=== PATIENT | male | born 1950 | race Caucasian/White ===

== ENCOUNTER 2025-04-09 11:44 | Inpatient (IN) | payer OTHER, MEDICARE ==
[~2025-04-09] VITALS: Ht 177.8 cm; Wt 59.9 kg
[2025-04-09] MEDS ORDERED: EPINEPhrine HCl 1 MG/ML IV IV ONE (11:52)
[2025-04-09] MEDS ORDERED: Phenylephrine HCl 100 MCG/ML-NS 10MLSYR (1MG/10ML) IV ONE (11:52)
[2025-04-09] MEDS ORDERED: Midazolam HCl 1MG / ML 2ML Vial IV ONE (11:52)
[2025-04-09] MEDS ORDERED: Naloxone HCl 0.4MG / ML 1ML Vial IV ONE (11:52)
[2025-04-09 12:54] LABS: BASOPHILS ABSOLUTE AUTO 0.03 K/mm3 (0.00-0.23); BASOPHILS PERCENT AUTO 0 % (0-2); EOSINOPHILS ABSOLUTE AUTO 0.05 K/mm3 (0.00-0.68); EOSINOPHILS PERCENT AUTO 0 % (0-6); Hematocrit 48.0 % (37.0-53.0); Hemoglobin 15.5 g/dL (13.5-17.5); IMMATURE GRAN ABSOLUTE AUTO 0.07 K/mm3 (0.00-0.10); IMMATURE GRAN PERCENT AUTO 1 % (0-1); LYMPHOCYTES ABSOLUTE AUTO 1.61 K/mm3 (0.84-5.20); LYMPHOCYTES PERCENT AUTO 11 % (21-46); MONOCYTES ABSOLUTE AUTO 0.91 K/mm3 (0.16-1.47); MONOCYTES PERCENT AUTO 6 % (4-13); Mean Corpuscular HGB Conc 32.3 g/dL (31.5-36.5); Mean Corpuscular Volume 87 fL (80-100); NEUTROPHILS ABSOLUTE AUTO 11.60 K/mm3 (1.96-9.15); NEUTROPHILS PERCENT AUTO 81 % (41-73); NRBC ABSOLUTE 0.00 K/mm3 (0.00-0.02); NRBC Auto 0.0 /100 WBC (0.0-0.2); Platelet Count 474 K/mm3 (150-400); RDW Coefficient Variation 16.2 % (11.7-14.2); RDW Standard Deviation 51.9 fL (35.1-46.3)
[2025-04-09 13:35] LABS: Alanine Aminotransfer (ALT/SGP 26.0 U/L (12-78); Albumin, Blood 3.0 g/dL (3.4-5.0); Albumin/Globulin Ratio 0.6 (0.8-1.8); Anion Gap 11.0 mmol/L (3-11); Aspartate Aminotrans (AST/SGOT 25.0 U/L (12-37); Bilirubin, Total 0.4 mg/dL (0.1-1.0); Blood Urea Nitrogen 31.0 mg/dL (8-24); CO2, Blood 25.0 mmol/L (21-32); Calcium, Blood 10.8 mg/dL (8.5-10.1); Chloride, Blood 108.0 mmol/L (98-108); Creatinine, Blood 0.93 mg/dL (0.60-1.20); Globulin, Blood 4.8 g/dL (2.2-4.0); Glucose, Blood 89.0 mg/dL (70-99); Magnesium, Blood 2.2 mg/dL (1.6-2.4); Potassium, Blood 4.1 mmol/L (3.5-5.5); Sodium, Blood 140.0 mmol/L (136-145); Total Protein, Blood 7.8 g/dL (6.4-8.2)
[2025-04-09] MEDS ORDERED: Furosemide 10 MG / ML 2ML Vial IV ONE (13:55)
[2025-04-09] MEDS ORDERED: FLU VACC TS2025(65UP)/MF59C/PF 45 MCG/0.5 ML SYRINGE IM SCH (17:25)
[2025-04-09] MEDS ORDERED: Ipratropium/Albuterol SulF 2.5-0.5MG/3 ML Amp INH PRN (17:25)
[2025-04-09] MEDS ORDERED: Ondansetron HCl 2 MG / ML 2ML Vial IV PRN (17:25)
[2025-04-09] MEDS ORDERED: Furosemide 10 MG / ML 2ML Vial IV SCH (18:00)
[2025-04-09] MEDS ORDERED: Dose Adjust by Pharmacy XX STA (18:11)
[2025-04-09] MEDS ORDERED: Heparin Sodium,Porcine/0.5 NS 500 ML IV SCH (18:15)
[2025-04-09 18:47] LABS: Anti-Xa UFH, PHA Monitoring 0.82 IU/mL; Prothrombin Time Results 11.8 Sec (9.7-11.5)
[2025-04-09] MEDS ORDERED: METO100 (20:08)
[2025-04-09] MEDS ORDERED: ROSUVASTATIN CA20 MG (20:09)
[2025-04-09] MEDS ORDERED: EUTHYROX50 MCG (20:11)
[2025-04-09] MEDS ORDERED: Prinivil10 MG PO (20:11)
[2025-04-09] MEDS ORDERED: ELIQUIS5 M2 PO (20:11)
[2025-04-09 20:12] VITALS: BP 118/73
[2025-04-09] MEDS ORDERED: JARDIANCE25 MG (20:12)
[2025-04-09] MEDS ORDERED: Aspir 8181 MG PO (23:34)
[2025-04-09 23:59] VITALS: BP 125/69
[2025-04-10 00:55] LABS: BASOPHILS ABSOLUTE AUTO 0.05 K/mm3 (0.00-0.23); BASOPHILS PERCENT AUTO 0 % (0-2); EOSINOPHILS ABSOLUTE AUTO 0.05 K/mm3 (0.00-0.68); EOSINOPHILS PERCENT AUTO 0 % (0-6); Hematocrit 45.2 % (37.0-53.0); Hemoglobin 14.8 g/dL (13.5-17.5); IMMATURE GRAN ABSOLUTE AUTO 0.04 K/mm3 (0.00-0.10); IMMATURE GRAN PERCENT AUTO 0 % (0-1); LYMPHOCYTES ABSOLUTE AUTO 1.85 K/mm3 (0.84-5.20); LYMPHOCYTES PERCENT AUTO 12 % (21-46); MONOCYTES ABSOLUTE AUTO 1.30 K/mm3 (0.16-1.47); MONOCYTES PERCENT AUTO 8 % (4-13); Mean Corpuscular HGB Conc 32.7 g/dL (31.5-36.5); Mean Corpuscular Volume 88 fL (80-100); NEUTROPHILS ABSOLUTE AUTO 12.16 K/mm3 (1.96-9.15); NEUTROPHILS PERCENT AUTO 79 % (41-73); NRBC ABSOLUTE 0.00 K/mm3 (0.00-0.02); NRBC Auto 0.0 /100 WBC (0.0-0.2); Platelet Count 379 K/mm3 (150-400); RDW Coefficient Variation 16.1 % (11.7-14.2); RDW Standard Deviation 51.9 fL (35.1-46.3)
[2025-04-10 01:21] LABS: Alanine Aminotransfer (ALT/SGP 23.0 U/L (12-78); Albumin, Blood 3.0 g/dL (3.4-5.0); Albumin/Globulin Ratio 0.7 (0.8-1.8); Anion Gap 11.0 mmol/L (3-11); Aspartate Aminotrans (AST/SGOT 27.0 U/L (12-37); Bilirubin, Total 0.4 mg/dL (0.1-1.0); Blood Urea Nitrogen 36.0 mg/dL (8-24); CO2, Blood 28.0 mmol/L (21-32); Calcium, Blood 11.1 mg/dL (8.5-10.1); Chloride, Blood 105.0 mmol/L (98-108); Creatinine, Blood 0.95 mg/dL (0.60-1.20); Globulin, Blood 4.5 g/dL (2.2-4.0); Glucose, Blood 87.0 mg/dL (70-99); Magnesium, Blood 2.3 mg/dL (1.6-2.4); Potassium, Blood 4.1 mmol/L (3.5-5.5); Sodium, Blood 140.0 mmol/L (136-145); Total Protein, Blood 7.5 g/dL (6.4-8.2)
[2025-04-10] MEDS ORDERED: Dose Adjust by Pharmacy XX STA ×4 (01:35→23:15)
[2025-04-10] MEDS ORDERED: Heparin Sodium 5000 Units/ML 1ML MDV IV ONE (01:40)
[2025-04-10] MEDS ORDERED: LEVSOD150 PO (02:16)
[2025-04-10 04:07] VITALS: BP 127/87
[2025-04-10] MEDS ORDERED: Guaifenesin/Dextromethorphan Syrup 5 ML UDC PO PRN (04:15)
[2025-04-10 06:34] VITALS: BP 102/76
[2025-04-10] MEDS ORDERED: Piperacillin/Tazobactam Sod 4.5 GM in NS 100 ML IV SCH ×2 (07:15→15:00)
[2025-04-10] MEDS ORDERED: NS 1,000 ML IV ONE (07:20)
[2025-04-10] MEDS ORDERED: Lidocaine 2% Jelly Uro-Jet TOP ONE (07:25)
[2025-04-10 07:27] VITALS: BP 137/76
--- NOTE | 2025-04-10 08:31 | NUR ---
ADMISSION AND SHIFT SUMMARY ASSUMED CARE AT 1999. A/Ox4, VSS ON RA. RAPID RESPONSE TEAM CALLED AT 0645 FOR INCREASED WORK OF BREATHING, SOB, CHANGE IN MENTATION, SENSE OF DOOM. AT THAT TIME BP 102/76, HR 72, RR 22-24, SPO2 97. THIS PARTS FABRICATOR PROVIDED HISTORY TO THE TEAM, ADMINISTERED 0900 20MG LASIX AT 0705. LOC RETURNED TO BASELINE AT THIS TIME, RR CURRENTLY 16. STRICT I/Os IN PLACE THIS SHIFT, NPO DIET, VOIDING BY URINAL. SPOUSE ROOMING IN OVERNIGHT.
[2025-04-10 08:46] LABS: Prothrombin Time Results 12.0 Sec (9.7-11.5)
[2025-04-10] MEDS ORDERED: Furosemide 10 MG / ML 2ML Vial IV SCH ×2 (09:00→11:00)
[2025-04-10 09:27] LABS: Influenza A/2009-H1 Not Detected (NOT DETECT); SARS-Cov-2 (COVID-19), BioFire Not Detected (NOT DETECT)
[2025-04-10] MEDS ORDERED: Ipratropium/Albuterol SulF 2.5-0.5MG/3 ML Amp INH PRN (11:10)
[2025-04-10 11:30] VITALS: BP 105/67
[2025-04-10 15:45] VITALS: BP 123/75
--- NOTE | 2025-04-10 16:20 | NUR ---
SEE CASE CONFERENCE ASSESSMENT
[2025-04-10 20:51] VITALS: BP 109/74
[2025-04-11 00:15] VITALS: BP 120/66
[2025-04-11 03:56] VITALS: BP 122/84
[2025-04-11 04:47] LABS: Hematocrit 44.2 % (37.0-53.0); Hemoglobin 14.8 g/dL (13.5-17.5); Mean Corpuscular HGB Conc 33.5 g/dL (31.5-36.5); Mean Corpuscular Volume 87 fL (80-100); NRBC ABSOLUTE 0.00 K/mm3 (0.00-0.02); NRBC Auto 0.0 /100 WBC (0.0-0.2); Platelet Count 437 K/mm3 (150-400); RDW Coefficient Variation 16.2 % (11.7-14.2); RDW Standard Deviation 51.5 fL (35.1-46.3)
[2025-04-11 05:07] LABS: Albumin, Blood 2.9 g/dL (3.4-5.0); Anion Gap 12 mmol/L (3-11); Blood Urea Nitrogen 43 mg/dL (8-24); CO2, Blood 30 mmol/L (21-32); Calcium, Blood 11.0 mg/dL (8.5-10.1); Chloride, Blood 104 mmol/L (98-108); Creatinine, Blood 1.37 mg/dL (0.60-1.20); Glucose, Blood 128 mg/dL (70-99); Phosphorus, Blood 4.3 mg/dL (2.5-4.9); Potassium, Blood 3.5 mmol/L (3.5-5.5); Sodium, Blood 142 mmol/L (136-145)
[2025-04-11] MEDS ORDERED: Dose Adjust by Pharmacy XX STA ×2 (05:26→12:37)
--- NOTE | 2025-04-11 07:41 | NUR ---
SHIFT SUMMARY AT START OF SHIFT, PT HAS BEEN PLEASANT AND COOPERATIVE WITH CARE. 2305, HEMATOLOGY CALLED WITH CRITICAL PTT 100.1. THIS IS DECREASED FROM 107.0. TRENDING IN CORRECT DIRECTION. PHARMACY NOTIFIED. NO CHANGES MADE TO DOSAGE YET. WILL REEVALUATE WITH AM LABS. PT HAS BEEN PLEASANT AND COOPERATIVE WITH CARE.
[2025-04-11 07:50] VITALS: BP 123/77
[2025-04-11 16:30] VITALS: BP 126/64
--- NOTE | 2025-04-11 17:45 | NUR ---
NO ACUTE CHANGES, MAKES NEEDS KNOWN, PLEASANT TO CARE, NPO, ST TO WORK WITH PATIENT TOMORROW, HOME FOR THE EVENING, VERY HELPFUL WITH CARE, CALL LIGHT WITH IN REACH
[2025-04-11] MEDS ORDERED: Piperacillin/Tazobactam Sod 4.5 GM in NS 100 ML IV SCH (18:00)
[2025-04-11 19:58] VITALS: BP 104/61
[2025-04-12 00:34] VITALS: BP 118/78
[2025-04-12 03:14] LABS: BASOPHILS ABSOLUTE AUTO 0.05 K/mm3 (0.00-0.23); BASOPHILS PERCENT AUTO 0 % (0-2); EOSINOPHILS ABSOLUTE AUTO 0.01 K/mm3 (0.00-0.68); EOSINOPHILS PERCENT AUTO 0 % (0-6); Hematocrit 45.3 % (37.0-53.0); Hemoglobin 14.8 g/dL (13.5-17.5); IMMATURE GRAN ABSOLUTE AUTO 0.13 K/mm3 (0.00-0.10); IMMATURE GRAN PERCENT AUTO 1 % (0-1); LYMPHOCYTES ABSOLUTE AUTO 1.55 K/mm3 (0.84-5.20); LYMPHOCYTES PERCENT AUTO 7 % (21-46); MONOCYTES ABSOLUTE AUTO 1.59 K/mm3 (0.16-1.47); MONOCYTES PERCENT AUTO 7 % (4-13); Mean Corpuscular HGB Conc 32.7 g/dL (31.5-36.5); Mean Corpuscular Volume 88 fL (80-100); NEUTROPHILS ABSOLUTE AUTO 19.70 K/mm3 (1.96-9.15); NEUTROPHILS PERCENT AUTO 86 % (41-73); NRBC ABSOLUTE 0.00 K/mm3 (0.00-0.02); NRBC Auto 0.0 /100 WBC (0.0-0.2); Platelet Count 415 K/mm3 (150-400); RDW Coefficient Variation 16.2 % (11.7-14.2); RDW Standard Deviation 51.5 fL (35.1-46.3)
[2025-04-12 03:32] LABS: Albumin, Blood 2.8 g/dL (3.4-5.0); Anion Gap 12 mmol/L (3-11); Blood Urea Nitrogen 44 mg/dL (8-24); CO2, Blood 27 mmol/L (21-32); Calcium, Blood 10.6 mg/dL (8.5-10.1); Chloride, Blood 108 mmol/L (98-108); Creatinine, Blood 1.45 mg/dL (0.60-1.20); Glucose, Blood 93 mg/dL (70-99); Phosphorus, Blood 3.6 mg/dL (2.5-4.9); Potassium, Blood 3.0 mmol/L (3.5-5.5); Sodium, Blood 144 mmol/L (136-145)
[2025-04-12] MEDS ORDERED: Dose Adjust by Pharmacy XX STA ×3 (04:02→16:47)
[2025-04-12 05:48] VITALS: BP 125/75
--- NOTE | 2025-04-12 06:45 | NUR ---
SHIFT SUMMARY: Pt is admitted for dysphagia and is a full code. Is alert and able to make needs known. Has been NPO. ADLs have been 1p but did not get out of bed. Denies pain or discomfort when asked. Heparin drip has been running though shift. Start at 20.9ml/h. On first check was reported to break nurse critical high and was adjusted to 19.8ml/h. On second check no changes were ordered. Telly noted sinus in the 80s with a 1 deg and PVCs. no over events reported. Folly in place and draining clear yellow urine.
[2025-04-12 07:48] VITALS: BP 124/79
[2025-04-12] MEDS ORDERED: Doxycycline Hyclate 100 MG in Dextrose 5% 250 ML IV SCH (12:00)
[2025-04-12] MEDS ORDERED: NS 250 ML IV PRN (12:20)
[2025-04-12 15:24] VITALS: BP 117/82
--- NOTE | 2025-04-12 18:26 | NUR ---
END OF SHIFT NOTE PATIENT A&OX3 TODAY. SOME CONFUSION ABOUT DATES AND TIMES. IN TO VISIT TODAY, PLAN OF CARE DISCUSSED. PATIENT HAD SWOLLOW TEST, PEG TUBE SUGGESTED. PATIENT AWARE. PATIENT NPO FOR SHIFT, FEELING WEAK AND TIRED. HEPARIN INFUSING TO ORDER. PATIENT A 1PERSON ASSIST TO BATHROOM AND WITH URINAL. CATH D/C TODAY. NO OTHER CONERNS FOR THIS SHIFT.
[2025-04-12 19:39] VITALS: BP 88/76
--- NOTE | 2025-04-12 20:03 | NUR ---
BP NOTE BP 88/76, OTHERSWISE VSS. LEGS AND FEET ELEVATED. WILL RECHECK LATER.
[2025-04-12 21:59] VITALS: BP 120/74
--- NOTE | 2025-04-12 22:13 | NUR ---
BP NOTE BP 120/74. WILL CONTINUE TO MONITOR
--- NOTE | 2025-04-12 23:47 | NUR ---
LAB CALLED CRITICAL APTT OF 104.8. CALLED DR MORENO. NO NEW ORDERS AT THIS TIME.
[2025-04-13] VITALS (67 sets, daily range): BP systolic 60–178; BP diastolic 26–108
[2025-04-13] MEDS ORDERED: Dose Adjust by Pharmacy XX STA ×4 (00:14→06:14)
[2025-04-13] MEDS ORDERED: FentaNYL Citrate 50 MCG/ML 2 ML Injection IV PRN ×3 (01:40→14:10)
[2025-04-13 03:41] LABS: VITAMIN D,1,25-DIHYDROXY 27.3 pg/mL (19.9-79.3)
[2025-04-13 04:52] LABS: BASOPHILS ABSOLUTE AUTO 0.05 K/mm3 (0.00-0.23); BASOPHILS PERCENT AUTO 0 % (0-2); EOSINOPHILS ABSOLUTE AUTO 0.00 K/mm3 (0.00-0.68); EOSINOPHILS PERCENT AUTO 0 % (0-6); Hematocrit 35.2 % (37.0-53.0); Hemoglobin 11.3 g/dL (13.5-17.5); IMMATURE GRAN ABSOLUTE AUTO 0.20 K/mm3 (0.00-0.10); IMMATURE GRAN PERCENT AUTO 1 % (0-1); LYMPHOCYTES ABSOLUTE AUTO 0.76 K/mm3 (0.84-5.20); LYMPHOCYTES PERCENT AUTO 3 % (21-46); MONOCYTES ABSOLUTE AUTO 1.05 K/mm3 (0.16-1.47); MONOCYTES PERCENT AUTO 4 % (4-13); Mean Corpuscular HGB Conc 32.1 g/dL (31.5-36.5); Mean Corpuscular Volume 87 fL (80-100); NEUTROPHILS ABSOLUTE AUTO 24.40 K/mm3 (1.96-9.15); NEUTROPHILS PERCENT AUTO 92 % (41-73); NRBC ABSOLUTE 0.00 K/mm3 (0.00-0.02); NRBC Auto 0.0 /100 WBC (0.0-0.2); Platelet Count 443 K/mm3 (150-400); RDW Coefficient Variation 15.9 % (11.7-14.2); RDW Standard Deviation 50.9 fL (35.1-46.3)
[2025-04-13 05:10] LABS: Anion Gap 13.0 mmol/L (3-11); Blood Urea Nitrogen 52.0 mg/dL (8-24); CO2, Blood 25.0 mmol/L (21-32); Calcium, Blood 10.9 mg/dL (8.5-10.1); Chloride, Blood 110.0 mmol/L (98-108); Creatinine, Blood 1.69 mg/dL (0.60-1.20); Glucose, Blood 160.0 mg/dL (70-99); Potassium, Blood 2.9 mmol/L (3.5-5.5); Sodium, Blood 145.0 mmol/L (136-145)
--- NOTE | 2025-04-13 05:31 | NUR ---
NOTE PT MORE LETHARGIC, MORE PALE THAN NOTED EARLIER. BP LEFT ARM: 79/58, RIGHT ARM: 74/48. LEFT ARM MANUAL 90/58. CHARGE NURSE AT BEDSIDE. O2 SATS DROP INTERMITTENTLY WITH O2 PER NC AT 2L/MIN. SLUGGISH BEHAVIOR. MD NOTIFIED AND ORDERED A 250 ML NS BOLUS. STILL LETHARGIC. RAPID REPONSE CALLED
[2025-04-13] MEDS ORDERED: NS 500 ML IV SCH ×3 (05:50→10:00)
[2025-04-13] MEDS ORDERED: NS 1,000 ML IV SCH ×2 (05:55→10:00)
[2025-04-13] MEDS ORDERED: FentaNYL Citrate 50 MCG/ML 2 ML Injection IV ONE ×2 (05:55→07:55)
[2025-04-13 06:06] LABS: Magnesium, Blood 2.4 mg/dL (1.6-2.4)
--- NOTE | 2025-04-13 06:44 | NUR ---
TRANSFER TO ICU WITH PCU STATUS BP DROPPING. RAPID CALLED. MD AT BEDSIDE. ORDERS TO TRANSFER TO ICU ROOM [address] OF ABD, PT WAS C/O PAIN OF ABD OF RIGHT SIDE AND FLANK. BOLUS OF NS 250 ML ORDERED AND GIVEN BUT BP STILL LOW. PT TRANSPORTED TO ICU, REPORT GIVEN AND PT RESTING QUIETLY. CALL LIGHT IN [facility].
--- NOTE | 2025-04-13 06:48 | NUR ---
TRANSFER TO ICU: PT ARRIVED TO ICU BED 06 POST RAPID RESPONSE FROM MEDICAL FLOOR. PT SLID ACROSS TO ICU BED. PT VERY PALE AND COOL TO TOUCH. SBP 60'S WITH MAP 52 UPON ARRIVAL. CALL PLACED TO DR. ELIAS WITH ORDERS FOR STAT TYPE AND SCREEN AND PERIPHERAL LEVOPHED. LEVO INITIATED AT A RATE OF 5 MCG/MIN. PT HAS COOL LOWER EXTREMETIES AND DOPPLER PULSES BILATERALLY. PT CONFUSED AND LETHARGIC UPON ARRIVAL. ONLY ABLE TO STATE THE YEAR. PT YELLING OUT IN PAIN C/O RIGHT FLANK PAIN, HOSPITALIST AWARE, TAKEN TO CT BEFORE COMING TO ICU. PT ON MONITOR ST WITH HR 110'S-120'S WITH FREQUENT PVC'S. PT ON 2L NC, UNABLE TO OBTAIN SAT READING R/T PERFUSION. PIV TO LAC AND RFA BOTH PATENT. HEPARIN ON SB UPON ARRIVAL TO ICU. HAS NOT YET VOIDED. PT VERY RESTLESS IN THE BED. BED LOCKED AND LOW.
[2025-04-13] MEDS ORDERED: Tranexamic Acid 100 ML IV STA (07:04)
--- NOTE | 2025-04-13 07:45 | NUR ---
ALERTS CALL GIVEN TO DOCTOR ABOUT ABOUT GFR/URINE OUTPUT CONCERNS (ATTEMPTED STRAIGHT CATH FOR URINE SAMPLE AT PATIENT'S REQUEST AND INABILITY TO FOLLOW CLEAN CATCH PROCEDURE, NO URINE OUTPUT, DID BLADDER SCAN), APTT LAB VALUES, WBC, TEMPERATURE DIFFICULTIES, PAIN CONCERNS, BP CONCERNS, AND FINALLY PALE FACE AND CHANGE OF BREATHING STYLE. TREATED PER EMAR AND DOCTOR'S ORDER AFTER EACH CALL. , [employer] CALLED, TRANSFER TO ICU AFTER STAT CT SCAN
[2025-04-13] MEDS ORDERED: PROTAMINE SULFATE IV ONE (08:05)
[2025-04-13] MEDS ORDERED: NS IV ONE (08:05)
[2025-04-13] MEDS ORDERED: Vasopressin 20 UNITS in NS 100 ML IV SCH (08:45)
[2025-04-13] MEDS ORDERED: DEXMEDETOMIDINE IV SCH (08:50)
[2025-04-13] MEDS ORDERED: NS IV SCH (08:50)
[2025-04-13 09:37] LABS: Source, Urine Straight Cath
[2025-04-13 09:44] LABS: Bilirubin, Urine Neg (Neg); Color, Urine Yellow (P-Yellow); Glucose Qualitative, Urine 4+ (Neg); Ketones, Urine 1+ (Neg); Leukocyte Esterase, Urine 2+ (Neg); Protein, Urine 2+ (Neg); Specific Gravity, Urine 1.020 (1.003-1.022); Urobilinogen, Urine NORM (Normal)
[2025-04-13] MEDS ORDERED: Cetylpyridinium Chloride 1 EA MISC MT SCH (09:45)
[2025-04-13 09:50] LABS: BASOPHILS ABSOLUTE AUTO 0.07 K/mm3 (0.00-0.23); BASOPHILS PERCENT AUTO 0 % (0-2); EOSINOPHILS ABSOLUTE AUTO 0.00 K/mm3 (0.00-0.68); EOSINOPHILS PERCENT AUTO 0 % (0-6); Hematocrit 43.3 % (37.0-53.0); Hemoglobin 13.4 g/dL (13.5-17.5); IMMATURE GRAN ABSOLUTE AUTO 0.29 K/mm3 (0.00-0.10); IMMATURE GRAN PERCENT AUTO 1 % (0-1); LYMPHOCYTES ABSOLUTE AUTO 0.78 K/mm3 (0.84-5.20); LYMPHOCYTES PERCENT AUTO 4 % (21-46); MONOCYTES ABSOLUTE AUTO 1.10 K/mm3 (0.16-1.47); MONOCYTES PERCENT AUTO 5 % (4-13); Mean Corpuscular HGB Conc 30.9 g/dL (31.5-36.5); NEUTROPHILS ABSOLUTE AUTO 20.14 K/mm3 (1.96-9.15); NEUTROPHILS PERCENT AUTO 90 % (41-73); NRBC ABSOLUTE 0.00 K/mm3 (0.00-0.02); NRBC Auto 0.0 /100 WBC (0.0-0.2); Platelet Count 382 K/mm3 (150-400); RDW Coefficient Variation 15.1 % (11.7-14.2); RDW Standard Deviation 51.1 fL (35.1-46.3)
[2025-04-13 09:52] LABS: Yeast/Fungi Urine Many /hpf
[2025-04-13 09:54] LABS: Mean Corpuscular Volume 92 fL (80-100)
[2025-04-13] MEDS ORDERED: Albumin (Human) 25gm/100ml 100 ML IV SCH (10:00)
[2025-04-13] MEDS ORDERED: Pantoprazole Sodium 40 MG Injection IV SCH (10:00)
[2025-04-13 10:21] LABS: Alanine Aminotransfer (ALT/SGP 102.0 U/L (12-78); Albumin, Blood 2.4 g/dL (3.4-5.0); Albumin/Globulin Ratio 0.6 (0.8-1.8); Anion Gap 23.0 mmol/L (3-11); Aspartate Aminotrans (AST/SGOT 154.0 U/L (12-37); Bilirubin, Total 0.7 mg/dL (0.1-1.0); Blood Urea Nitrogen 57.0 mg/dL (8-24); CO2, Blood 16.0 mmol/L (21-32); Calcium, Blood 10.3 mg/dL (8.5-10.1); Chloride, Blood 109.0 mmol/L (98-108); Creatinine, Blood 2.15 mg/dL (0.60-1.20); Globulin, Blood 4.1 g/dL (2.2-4.0); Glucose, Blood 242.0 mg/dL (70-99); Potassium, Blood 3.2 mmol/L (3.5-5.5); Sodium, Blood 145.0 mmol/L (136-145); Total Protein, Blood 6.5 g/dL (6.4-8.2)
[2025-04-13] MEDS ORDERED: EPINEPHrine HCL 4 MG in NS 250 ML IV SCH (10:35)
--- NOTE | 2025-04-13 10:46 | NUR ---
Spiritual Care Visit. Spouse is at bedside with a palliative care nurse when I entered the room. Pt. is intubated and not responsive. Facilitated a life review with the spouse. Listened with empathy and interest. Steven displayed evidence of anticipatory grief as she retold the Pts. past cancer journey. Spouse verbalized gratitude for the spiritual care visit and welcomed this staff cytotechnologist to return.
[2025-04-13] MEDS ORDERED: Vancomycin (Pharmacy Consult) IV SCH (10:50)
[2025-04-13 11:25] LABS: pH Blood Venous 7.18 (7.34-7.37)
[2025-04-13 11:47] LABS: Hematocrit 38.9 % (37.0-53.0); Hemoglobin 12.5 g/dL (13.5-17.5)
[2025-04-13] MEDS ORDERED: Hydrogen Peroxide 1.5 % Solution MT SCH (12:00)
--- NOTE | 2025-04-13 12:06 | NUR ---
CARE ASSUMPTION/CODE FATMATA DURING BEDSIDE SHIFT REPORT W LAURYN RN DR. CALDERÓN WAS AT THE BEDSIDE ASSESSING THE PT. AT THAT TIME THE PT WAS AWAKE COMMUNICATING W STAFF USING SHORT PHRASES TO ANSWER YES/NO QUESTIONS. PT REPORTING SEVERE LOWER BACK PAIN AT THAT TIME. PT'S MONITOR SHOWING ST 110'S-120'S. PT HYPOTENSIVE AT THAT TIME W LEVOPHED GTT INFUSING. PT HAD PICC LINE PLACED BY PICC RN AND WAS VERY RESTLESS DUE TO THE BACK PAIN SO ADDITIONAL IV FENTANYL GIVEN. AFTER PICC LINE PLACED THE PT'S MONITOR BEGAN TO SHOW ECTOPY W SLOWING HR. PT'S MENTATION ALSO DECREASING NOT RESPONDING TO STAFF. PT W MINIMAL SPONTANEOUS RESPIRATIONS SO DR. PRESCOTT AND RT CALLED INTO THE RM. PT'S SPO2 MONITOR NOT READING AT THIS TIME AND DUE TO MINIMAL BREATHING PATTERN TAWANNA AVILEZ CALLED AND PT WAS INTUBATION. PT INCREASINGLY HYPOTENSIVE AFTER INTUBARTION DESPITE INCREASED TITRATIONS TO LEVOPHED GTT SO 500 MCG PHENYLEPHRINE IV PUSH WERE GIVEN X2. PT ALSO GIVEN 2MG IV VERSED PER DR. DE JESUS HE BEGAN TO REACH FOR ET TUBE. WITH PT INTUBATED AND DR. DE JESUS AT BEDSIDE THE CODE FATMATA ENDED.
[2025-04-13] MEDS ORDERED: FentaNYL Citrate 50 MCG/ML 2 ML Injection ONE (14:11)
[2025-04-13 14:41] LABS: Hematocrit 28.7 % (37.0-53.0); Hemoglobin 9.5 g/dL (13.5-17.5); Mean Corpuscular HGB Conc 33.1 g/dL (31.5-36.5); Mean Corpuscular Volume 88 fL (80-100); NRBC ABSOLUTE 0.00 K/mm3 (0.00-0.02); NRBC Auto 0.0 /100 WBC (0.0-0.2); Platelet Count 256 K/mm3 (150-400); RDW Coefficient Variation 15.0 % (11.7-14.2); RDW Standard Deviation 48.5 fL (35.1-46.3)
--- NOTE | 2025-04-13 15:28 | NUR ---
PROVIDER CONTACT DR DE JESUS CALLED AND NOTIFIED OF LATEST H/H. PROVIDER NOTIFIED HGB DROPPED FROM 12.5 TO 9.5. NO NEW ORDERS AT THIS TIME.
[2025-04-13] MEDS ORDERED: Piperacillin/Tazobactam Sod 4.5 GM in NS 100 ML IV SCH (16:00)
[2025-04-13 18:16] LABS: Albumin, Blood 3.6 g/dL (3.4-5.0); Anion Gap 11 mmol/L (3-11); Blood Urea Nitrogen 59 mg/dL (8-24); CO2, Blood 22 mmol/L (21-32); Calcium, Blood 10.0 mg/dL (8.5-10.1); Chloride, Blood 116 mmol/L (98-108); Creatinine, Blood 2.16 mg/dL (0.60-1.20); Glucose, Blood 179 mg/dL (70-99); Phosphorus, Blood 1.8 mg/dL (2.5-4.9); Potassium, Blood 2.9 mmol/L (3.5-5.5); Sodium, Blood 146 mmol/L (136-145)
--- NOTE | 2025-04-13 18:17 | NUR ---
SHIFT SUMMARY PATIENT INTUBATED AND SEDATED. PICC TO YESENIA INFUSING PROPOFOL, LEVOPHED, AND PRECEDEX PER EMAR. SEE FLOWSHEET FOR TITRATIONS. RASS -2. PATIENT WAKES TO PAIN, BUT IS UNABLE TO FOLLOW COMMANDS. VENT SETTINGS AC/VC 16/480/5 70% FIO2. SPO2 >94%. HR SINUS/SINUS TACH WITH BBB IN THE 80S-110S. OGT PATENT AND CLAMPED. NO BM THIS SHIFT. TEMP NAJERA PATIENT AND DRAINING MINIMAL URINE TO GRAVITY. PATIENT RECIEVED [address] THIS AM. DR DE JESUS AWARE OF H/H, PLAN TO RECHECK AT 1999. PATIENT HAD HEAD CT THIS AFTERNOON. AT BEDSIDE UPDATED ON PLAN OF CARE. DR DE JESUS NOTIFIED ABOUT PHOS OF 1.8 AND POTASSIUM OF 2.9. ORDERS FOR KPHOS REPLACEMENT. FLUIDS DECREASED TO 75 ML/HR.
[2025-04-13] MEDS ORDERED: Potassium Phosphate Dibasic 30 MM in Dextrose 5% 500 ML IV ONE (18:30)
[2025-04-13 20:27] LABS: Hematocrit 25.4 % (37.0-53.0); Hemoglobin 8.6 g/dL (13.5-17.5)
--- NOTE | 2025-04-13 21:39 | NUR ---
ASSUMPTION OF CARE: ASSUMED CARE OF PT AT 1910. PT INTUBATED AND SEDATED ON 10 MCG/KG/MIN OF PROPOFOL AND 0.4 MCG/KG/HR OF PRECEDEX. RASS -2. ETT 7.5, 23 TEETH. PT OPENS EYES TO VERBAL STIMULI AND RESPONDS TO PAINFUL STIMULI. SHAKES HEAD NO TO PAIN WHEN ASKED. ABLE TO FOLLOWS SIMPLE COMMANDS SUCH SQUEEZING HANDS. ON MINERAL ECONOMIST IN AFIB WITH PVC'S. HR 80-100'S. LEVOPHED INFUSING TO MAINTAIN MAP >65. VENT SETTINGS AC/VC 16/480/5/40%. SPO2 >94%. LUNGS CLEAR. OGT 55 CM, CLAMPED. NS AT 75 ML/HR. PICC TO RENITA, PATENT. NAJERA IN PLACE, DRAINING VERY MINIMAL AMOUNT OF YELLOW URINE. DR. DE JESUS AWARE. NO BM YET. BED LOCKED, BILATERAL SOFT RESTRAINTS IN PLACE.
[2025-04-14] VITALS (65 sets, daily range): BP systolic 68–132; BP diastolic 41–107
[2025-04-14 04:21] LABS: Hematocrit 24.9 % (37.0-53.0); Hemoglobin 8.6 g/dL (13.5-17.5); Mean Corpuscular HGB Conc 34.5 g/dL (31.5-36.5); Mean Corpuscular Volume 86 fL (80-100); NRBC ABSOLUTE 0.00 K/mm3 (0.00-0.02); NRBC Auto 0.0 /100 WBC (0.0-0.2); Platelet Count 233 K/mm3 (150-400); RDW Coefficient Variation 15.6 % (11.7-14.2); RDW Standard Deviation 49.0 fL (35.1-46.3)
[2025-04-14 04:42] LABS: Albumin, Blood 3.2 g/dL (3.4-5.0); Anion Gap 15 mmol/L (3-11); BAND PERCENT MAN 7 % (0-8); BASOPHILS ABSOLUTE MAN 0.00 K/mm3 (0.00-0.23); BASOPHILS PERCENT MAN 0 % (0-2); Blood Urea Nitrogen 63 mg/dL (8-24); CO2, Blood 21 mmol/L (21-32); Calcium, Blood 9.5 mg/dL (8.5-10.1); Chloride, Blood 113 mmol/L (98-108); Creatinine, Blood 2.71 mg/dL (0.60-1.20); EOSINOPHILS ABSOLUTE MAN 0.00 K/mm3 (0.00-0.68); EOSINOPHILS PERCENT MAN 0 % (0-6); Glucose, Blood 145 mg/dL (70-99); LYMPHOCYTES ABSOLUTE MAN 2.63 K/mm3 (0.84-5.20); LYMPHOCYTES PERCENT MAN 10 % (21-46); MONOCYTES ABSOLUTE MAN 1.84 K/mm3 (0.16-1.47); MONOCYTES PERCENT MAN 7 % (4-13); MYELOCYTE ABSOLUTE MAN 0.26 K/mm3 (0.00-0.00); MYELOCYTE PERCENT MAN 1 % (0-0); NEUTROPHILS ABSOLUTE MAN 21.63 K/mm3 (1.96-9.15); Phosphorus, Blood 4.6 mg/dL (2.5-4.9); Potassium, Blood 3.1 mmol/L (3.5-5.5); SEG NEUTROPHILS PERCENT MAN 75 % (41-73); Sodium, Blood 146 mmol/L (136-145); Vancomycin, Random 16.9 ug/mL
--- NOTE | 2025-04-14 05:25 | NUR ---
SHIFT SUMMARY: PT CONTINUES INTUBATED AND SEDATED. PRECEDEX TURNED OFF D/T BRADYCARDIC EPISODES. PROPOFOL AT 15 MCG/KG/MIN. PT OPENING EYES AND FOLLOWING DIRECTION. PT APPEARS STARTLED WHEN SEDATION TURNED OFF FOR NEURO ASSESSMENT. VENT SETTINGS UNCHANGED THIS SHIFT. SPO2 >94%. LUNGS CLEAR. OGT 55 CM AND CLAMPED. LEVOPHED INFUSING TO MAINTAIN MAP >65. SEE FLOWSHEET. PT IN AND OUT OF AFIB/SR WITH VERY FREQUENT PVC'S. PT HAVING COUPLETS AND OCCASIONAL SMALL RUNS OF VTACH. ETCO2 19-20. ETT 7.5, 23 TEETH. NAJERA REMAINS IN PLACE AND CONTINUES TO DRAIN MINIMALLY T/O THE SHIFT. PICC TO RENITA PATENT AND INFUSING. NS AT 75 ML/HR. PT SHAKING HEAD YES TO PAIN AT TIMES, MEDICATED PER AUG. BED LOCKED.
[2025-04-14] MEDS ORDERED: Piperacillin/Tazobactam Sod 4.5 GM in NS 100 ML IV SCH (09:00)
--- NOTE | 2025-04-14 10:52 | NUR ---
ASSUMED CARE OF PT AT 0700, PT IS SEDATED AND INTUBATED, PROPOFOL AT 15MCG/KG/MIN. VENT SETTINGS AC/VC+ 16/480/5/35% SPO2 93% PT ABLE TO OPEN EYES AND FOLLOW SIMPLE COMMANDS, ANSWERING YES/NO QUESTIONS BY HEAD GESTURES. ETT 7.5 , 23 AT THE GUM. OGT 55CM, CLAMPED. PT IN ST, HR 100-110, LEVOPHED AT 4MCG/MIN, MAP'S ABOVE 65. 0845: SEDATION VACATION, PT FOLLOWING COMMANDS, MORE ALERT. RT INFORMED, PT SWITCHED TO SPONT VENT MODE, PS 7, FIO2 35%
[2025-04-14] MEDS ORDERED: NS 250 ML IV PRN (11:05)
[2025-04-14] MEDS ORDERED: Levothyroxine Sodium 0.15 MG Tab PT SCH (11:05)
--- NOTE | 2025-04-14 16:32 | NUR ---
Pt and have decided to go home with [facility]. The patient agrees today with DNR. This PC RN has had multiple conversations today, reminiscing, offering therapeutic communication. She verbalized appreciation for staff support while the patient was on vent. He has been extubated and is able to make his needs and wants known.
--- NOTE | 2025-04-14 18:49 | NUR ---
SHIFT SUMMARY: PT IS DROWSY AND ORIENTED TO SELF, PLACE, YEAR. PT UNABLE TO STATE CURRENT SITUATION. PT IS SLOW TO RESPOND, VERY WEAK PHONATION. PT ABLE TO FOLLOW COMMANDS AND COMMUNICATES SOME NEEDS. PT C/O PAIN TO NECK AND BACK, PRN FENTANYL GIVEN PER MAR WITH GOOD EFFECT. PT BACK AND FOURTH FROM AFIB TO SR, HR IN THE 90'S. LEVOPHED INFUSING AT 2MCG/MIN TO MAINTAIN MAP ABOVE 65. PT EXTUBATED AT 1140, PT ON 2L OF OXYGEN VIA NC, SP02 ABOVE 95% NAJERA PATENT DRAINING TO GRAVITY. PT REPOSITIONED Q2HRS. PT CHANGED CODE STATUS DNR/DNI, PLAN IS TO D/C TO HOSPICE 04/15/25.
[2025-04-15] VITALS (31 sets, daily range): BP systolic 92–121; BP diastolic 52–92
[2025-04-15 03:12] LABS: BASOPHILS ABSOLUTE AUTO 0.05 K/mm3 (0.00-0.23); BASOPHILS PERCENT AUTO 0 % (0-2); EOSINOPHILS ABSOLUTE AUTO 0.01 K/mm3 (0.00-0.68); EOSINOPHILS PERCENT AUTO 0 % (0-6); Hematocrit 26.4 % (37.0-53.0); Hemoglobin 8.6 g/dL (13.5-17.5); IMMATURE GRAN ABSOLUTE AUTO 0.23 K/mm3 (0.00-0.10); IMMATURE GRAN PERCENT AUTO 1 % (0-1); LYMPHOCYTES ABSOLUTE AUTO 1.26 K/mm3 (0.84-5.20); LYMPHOCYTES PERCENT AUTO 5 % (21-46); MONOCYTES ABSOLUTE AUTO 1.84 K/mm3 (0.16-1.47); MONOCYTES PERCENT AUTO 7 % (4-13); Mean Corpuscular HGB Conc 32.6 g/dL (31.5-36.5); Mean Corpuscular Volume 89 fL (80-100); NEUTROPHILS ABSOLUTE AUTO 23.69 K/mm3 (1.96-9.15); NEUTROPHILS PERCENT AUTO 88 % (41-73); NRBC ABSOLUTE 0.00 K/mm3 (0.00-0.02); NRBC Auto 0.0 /100 WBC (0.0-0.2); Platelet Count 233 K/mm3 (150-400); RDW Coefficient Variation 16.3 % (11.7-14.2); RDW Standard Deviation 53.4 fL (35.1-46.3)
[2025-04-15 03:39] LABS: Thyroid Stimulating Hormone 1.060 uIU/mL (0.360-4.800)
[2025-04-15 04:01] LABS: Albumin, Blood 3.0 g/dL (3.4-5.0); Anion Gap 12 mmol/L (3-11); Blood Urea Nitrogen 69 mg/dL (8-24); CO2, Blood 19 mmol/L (21-32); Calcium, Blood 9.3 mg/dL (8.5-10.1); Chloride, Blood 119 mmol/L (98-108); Creatinine, Blood 3.57 mg/dL (0.60-1.20); Glucose, Blood 126 mg/dL (70-99); Phosphorus, Blood 4.6 mg/dL (2.5-4.9); Potassium, Blood 4.7 mmol/L (3.5-5.5); Sodium, Blood 145 mmol/L (136-145); Vancomycin, Trough 24.3 ug/mL (5.0-10.0)
[2025-04-15 05:03] LABS: PTHRP BY LC-MS/MS,PLASMA 9.3 pmol/L (0.0-2.3)
--- NOTE | 2025-04-15 05:49 | NUR ---
SHIFT SUMMARY PT A&O x3, TO SELF/PLACE/MIN SITUATION, NOT ORIENTED TO TIME. PT DIFFICULTY COMMUNICATING R/T WEAK PHONATION S/P EXTUBATION, ABLE TO NOD TO Y/N QUESTIONS. PT COMMUNICATES SOME NEEDS & FOLLOWS SOME COMMANDS. PT REFUSING SOME CARE. PT COMPLAINS OF BASELINE BACK PAIN & ACUTE PAIN IN THROAT/NOSE/MOUTH/ c RESPIRATIONS. MEDICATED PER EMAR. PT SR TO AFIB THROUGHOUT THE NIGHT, 7 BEAT RUN OF V-TACH. LEVOPHED ON STANDBY SINCE APPROX 0230, MAP >65. SPO2 >90% ON 3L O2 VIA NC. NAJERA DRAINING LIGHT YELLOW URINE TO GRAVITY. INCONT SMEAR BM THIS SHIFT. Q2 REPOSITIONING TOLERATED BY PT. ANTICIPATED D/C HOME ON HOSPICE TODAY. CALL LIGHT IN REACH, BED IN LOWEST POSITION, WILL REPORT TO DAY RN.
[2025-04-15] MEDS ORDERED: AMOCLA250S PO (10:43)
[2025-04-15] MEDS ORDERED: MORP20L PO (10:44)
[2025-04-15] MEDS ORDERED: Morphine Sulfate 20 MG/1ML 1 ML Oral Syringe PO PRN (11:25)
[2025-04-15] MEDS ORDERED: Morphine Sulfate 10 MG/ML 1MLSYR IV PRN (12:20)
[2025-04-15] MEDS ORDERED: LORazepam 2 MG/ML 1ML Injection IV PRN (12:20)
--- NOTE | 2025-04-15 13:23 | NUR ---
PT WAS PAINFUL AND DYSPNEIC THIS AM. GOT SCOPOLAMINE PATCH, ROXANOL, FENTANYL, AND ATIVAN. PT WAS UNABLE TO LAY FLAT AND DID NOT TOLERATE ANY CARE WITHOUT GETTING EXTREMELY SOB. NT SUCTION BY RT ONE TIME THAT WAS NOT SUCCESSFUL. PT IS BEING TAKEN VIA AMBULANCE HOME ON HOSPICE. PT IS RESTING QUIETLY HE LEAVES THE UNIT WITH AMBULANCE CREW. AND HOSPICE NOTIFIED OF PT LEAVING THE HOSPITAL.
== END 2025-04-15 13:10 | disposition hospice, home (50) | DRG 871 ==
LOC: ER 11:44 → MEDS 17:20 → ICUE 17:20 → MEDS 19:57 → ICUE 04-13 06:00
PROVIDERS: Family Medicine; Internal Medicine; Internal Medicine Critical Care Medicine; Student in an Organized Health Care Education/Training Program; ADMIT Student in an Organized Health Care Education/Training Program
PROC: 0T9B70Z Drainage of Bladder with Drainage Device, Via Natural or Artificial Opening (ICD-10-PCS; principal; 2025-04-10)
PROC: 3E03329 Introduction of Other Anti-infective into Peripheral Vein, Percutaneous Approach (ICD-10-PCS; 2025-04-10)
PROC: 0BH17EZ Insertion of Endotracheal Airway into Trachea, Via Natural or Artificial Opening (ICD-10-PCS; 2025-04-10)
PROC: 3E033XZ Introduction of Vasopressor into Peripheral Vein, Percutaneous Approach (ICD-10-PCS; 2025-04-13)
PROC: 30233J1 Transfusion of Nonautologous Serum Albumin into Peripheral Vein, Percutaneous Approach (ICD-10-PCS; 2025-04-13)
PROC: 5A1945Z Respiratory Ventilation, 24-96 Consecutive Hours (ICD-10-PCS; 2025-04-13)
PROC: 02HV33Z Insertion of Infusion Device into Superior Vena Cava, Percutaneous Approach (ICD-10-PCS; 2025-04-13)
DX: A41.9 Sepsis, unspecified organism (principal); E43 Unspecified severe protein-calorie malnutrition; I21.4 Non-ST elevation (NSTEMI) myocardial infarction; I50.23 Acute on chronic systolic (congestive) heart failure; J18.9 Pneumonia, unspecified organism; R65.21 Severe sepsis with septic shock; J96.01 Acute respiratory failure with hypoxia; K68.3 Retroperitoneal hematoma; J69.0 Pneumonitis due to inhalation of food and vomit; R57.8 Other shock; C85.1A Unspecified B-cell lymphoma, in remission; R64 Cachexia; N39.0 Urinary tract infection, site not specified; N17.9 Acute kidney failure, unspecified; Z68.1 Body mass index [BMI] 19.9 or less, adult; Z51.5 Encounter for palliative care; Z66 Do not resuscitate; I51.3 Intracardiac thrombosis, not elsewhere classified; E83.52 Hypercalcemia; I25.10 Atherosclerotic heart disease of native coronary artery without angina pectoris; E03.9 Hypothyroidism, unspecified; E78.00 Pure hypercholesterolemia, unspecified; I11.0 Hypertensive heart disease with heart failure; F17.210 Nicotine dependence, cigarettes, uncomplicated; I48.91 Unspecified atrial fibrillation; E86.0 Dehydration; F41.9 Anxiety disorder, unspecified; I25.5 Ischemic cardiomyopathy; T45.515A Adverse effect of anticoagulants, initial encounter; Z87.01 Personal history of pneumonia (recurrent); Z93.1 Gastrostomy status; Z95.0 Presence of cardiac pacemaker; Z95.1 Presence of aortocoronary bypass graft; Z82.49 Family history of ischemic heart disease and other diseases of the circulatory system; Z82.3 Family history of stroke; Z83.3 Family history of diabetes mellitus; Z80.6 Family history of leukemia; Z79.01 Long term (current) use of anticoagulants; Z79.82 Long term (current) use of aspirin; Z79.84 Long term (current) use of oral hypoglycemic drugs; Z79.890 Hormone replacement therapy; Z79.899 Other long term (current) drug therapy
CPT/HCPCS: 0202U; 31720; 36415; 36430; 51701; 70450; 71045; 71046; 74176; 74220; 74230; 80048; 80053; 80069; 80202; 81001; 82306; 82330; 82542; 82652; 82803; 82947; 83615; 83735; 83880; 83970; 84145; 84443; 84484; 85014; 85018; 85025; 85027; 85520; 85610; 85730; 86850; 86900; 86901; 86923; 87070; 87086; 87106; 87205; 92526; 92610; 92611; 93005; 93010; 94002; 94003; 94640; 94664; 94762; 96374; 97165; 97535; 99285-25; A9270; C1751; C8929; J0166; J1644; J1938; J2060; J2250; J2270; J2312; J2371; J2470; J2543; J2704; J2720; J3010; J3373; J3480; J7030; J7040; J7050; J7060; P9016; P9047; Q9957